=== PATIENT | female | born 1950 | race Two or more races ===

== ENCOUNTER 2018-10-18 11:18 | Emergency (ER) | payer OTHER ==
[~2018-10-18] VITALS: Ht 154.9 cm; Wt 77.1 kg
[~2018-10-18 11:18] MED LIST: DIAZEPAM10 MG PO; HYZAAR 100-121 UDTAB; HYZAAR 50/12.51 TAB PO; NEURONTIN800 MG; PROTONIX40 MG PO; ZOFRAN8 MG PO
[2018-10-18] MEDS ORDERED: CARDIZEM CD180 MG PO (11:46)
[2018-10-18] MEDS ORDERED: LYRICA50 MG PO (11:47)
[2018-10-18] MEDS ORDERED: PLAVIX75 MG PO (11:47)
== END 2018-10-18 16:03 | disposition home or self-care (01) ==
LOC: ER 11:18
DX: R42 Dizziness and giddiness (principal)

== ENCOUNTER → 2018-12-07 08:58 | Outpatient (CLI) | payer OTHER ==
[~2018-12-07 08:58] MED LIST changes: +CARDIZEM CD180 MG PO; +LYRICA50 MG PO; +PLAVIX75 MG PO
== END | disposition home or self-care (01) ==
LOC: LAB 08:58
DX: N39.0 Urinary tract infection, site not specified (principal); D69.8 Other specified hemorrhagic conditions; I11.9 Hypertensive heart disease without heart failure; M79.7 Fibromyalgia; Z68.29 Body mass index [BMI] 29.0-29.9, adult; I73.89 Other specified peripheral vascular diseases; M54.5 Low back pain; E03.8 Other specified hypothyroidism; E55.9 Vitamin D deficiency, unspecified; E78.89 Other lipoprotein metabolism disorders; R00.2 Palpitations; F39 Unspecified mood [affective] disorder; D64.89 Other specified anemias; E78.49 Other hyperlipidemia; I10 Essential (primary) hypertension; Z12.11 Encounter for screening for malignant neoplasm of colon; C18.9 Malignant neoplasm of colon, unspecified

== ENCOUNTER 2018-12-07 10:30 | Outpatient (CLI) | payer OTHER | END 2018-12-07 10:38 | disposition home or self-care (01) | LOC: MAMO-SONO 10:30 | DX: Z12.31 Encounter for screening mammogram for malignant neoplasm of breast (principal); Z87.898 Personal history of other specified conditions; M54.5 Low back pain; E55.9 Vitamin D deficiency, unspecified; E03.8 Other specified hypothyroidism; E78.89 Other lipoprotein metabolism disorders; R00.2 Palpitations; Z68.29 Body mass index [BMI] 29.0-29.9, adult; I77.3 Arterial fibromuscular dysplasia; F39 Unspecified mood [affective] disorder; I11.9 Hypertensive heart disease without heart failure; M79.7 Fibromyalgia ==

== ENCOUNTER 2018-12-12 13:40 | Outpatient (CLI) | payer OTHER | END 2018-12-12 13:44 | disposition home or self-care (01) | LOC: NUCLEAR 13:40 | DX: M81.0 Age-related osteoporosis without current pathological fracture (principal) ==

== ENCOUNTER 2018-12-14 10:32 | Outpatient (CLI) | payer OTHER | END 2018-12-14 10:51 | disposition home or self-care (01) | LOC: NUCLEAR 10:32 | DX: I87.2 Venous insufficiency (chronic) (peripheral) (principal) ==

== ENCOUNTER → 2018-12-15 | Outpatient (CLI) | payer OTHER | END | disposition home or self-care (01) | LOC: NUCLEAR 10:00 | DX: I73.9 Peripheral vascular disease, unspecified (principal) ==

== ENCOUNTER 2021-09-26 18:17 | Emergency (ER) | payer OTHER ==
[~2021-09-26] VITALS: Ht 154.9 cm; Wt 79.8 kg
== END 2021-09-26 20:32 | disposition home or self-care (01) ==
LOC: ER 18:17
DX: M79.661 Pain in right lower leg (principal)

== ENCOUNTER → 2021-09-27 | Emergency (ER) | payer OTHER ==
[~2021-09-27] VITALS: Ht 154.9 cm; Wt 79.8 kg
== END | disposition home or self-care (01) ==
LOC: ER 08:08
DX: M25.561 Pain in right knee (principal)

== ENCOUNTER 2021-10-13 09:03 | Outpatient (CLI) | payer OTHER | END 2021-10-13 09:04 | disposition home or self-care (01) | LOC: NUCLEAR 09:03 | PROVIDERS: ATTEND General Practice | DX: M79.604 Pain in right leg (principal) ==

== ENCOUNTER 2021-10-14 07:17 | Outpatient (CLI) | payer OTHER | END 2021-10-14 07:18 | disposition home or self-care (01) | LOC: NUCLEAR 07:17 | PROVIDERS: ATTEND General Practice | DX: M79.604 Pain in right leg (principal) ==

== ENCOUNTER 2022-08-25 12:58 | Outpatient (CLI) | payer OTHER | END 2022-08-25 12:59 | disposition home or self-care (01) | LOC: NUCLEAR 12:58 | PROVIDERS: ATTEND Internal Medicine | DX: M81.0 Age-related osteoporosis without current pathological fracture (principal) ==

== ENCOUNTER 2022-11-30 20:14 | Emergency (ER) | payer OTHER ==
[~2022-11-30] VITALS: Ht 154.9 cm; Wt 74.8 kg
== END 2022-12-01 00:02 | disposition home or self-care (01) ==
LOC: ER 20:14
DX: M25.531 Pain in right wrist (principal); Z88.0 Allergy status to penicillin

== ENCOUNTER 2024-07-03 08:20 | Emergency (ER) | payer OTHER ==
[2024-07-03] MEDS ORDERED: ACETAMINOPHEN 500 MG GEL..CAP PO ONE (08:47)
[2024-07-03 10:06] LABS: HEMATOCRIT 36.3 % (36.0-45.00); HEMOGLOBIN 12.2 g/dL (12.0-15.00); MEAN CELL VOLUME 81.6 fL (80.00-100.00); MEAN CORPUSCULAR HEMOGLOBIN 27.4 pg (27.00-32.0); MEAN CORPUSCULAR HGB CONC 33.5 g/dl (32.0-36.0); PLATELET COUNT 270 K/uL (150-450); RED BLOOD COUNT 4.44 M/uL (4.00-6.00)
== END 2024-07-03 11:47 | disposition home or self-care (01) ==
LOC: ER 08:20
PROVIDERS: Emergency Medicine
DX: J06.9 Acute upper respiratory infection, unspecified (principal); Z88.6 Allergy status to analgesic agent; Z20.822 Contact with and (suspected) exposure to COVID-19